=== PATIENT | male | born 1960 | race Caucasian/White ===

== ENCOUNTER 2018-12-17 22:20 | Emergency (ER) | payer MEDICAID, OTHER ==
[2018-12-18] MEDS ORDERED: valACYclovir 1,000 MG Tab PO ONE (00:15)
--- NOTE | 2018-12-18 00:18 | EDM.PDOC ---
ED HPI GENERAL MEDICAL PROBLEM - General Chief Complaint: Fever Stated Complaint: ILLNESS Time Seen by Provider: 12/17/18 23:50 Source of Information: Reports: Patient History Limitations: Reports: No Limitations - History of Present Illness INITIAL COMMENTS - FREE TEXT/NARRATIVE: This gentleman complains of a fever and a possible infected area to his right shoulder area it's just posterior to the right axilla. Started out yesterday as possibly a small bug bite but then today it's much worse. And laid in the diarrhea began to develop some blistering in the center. It's painful and he feels febrile - Related Data Allergies Allergy/AdvReac Type Severity Reaction Status Date / Time No Known Allergies Allergy Verified 12/17/18 22:42 Home Meds: Home Meds NK [No Known Home Meds] 12/17/18 [History] Past Medical History - Past Surgical History GI Surgical History: Reports: Appendectomy Musculoskeletal Surgical History: Reports: Shoulder Surgery Social & Family History - Tobacco Use Smoking Status *Q: Never Smoker ED ROS GENERAL - Review of Systems Review Of Systems: See Below Constitutional: Reports: Fever HEENT: Reports: No Symptoms Respiratory: Reports: No Symptoms Cardiovascular: Reports: No Symptoms, Palpitations GI/Abdominal: Reports: No Symptoms Skin: Reports: No Symptoms Neurological: Reports: No Symptoms Psychiatric: Reports: No Symptoms ED EXAM, SEPSIS - Physical Exam Exam: See Below Exam Limited By: No Limitations General Appearance: Alert, WD/WN Skin: Zoster-Like Rash (An area just posterior to the right axilla is bright red approximately 8 cm in diameter. In the center is a blistered area it's about 1.5 cm wide and about 3 cm long looks like a bunch of small blisters that have coalesced.) Departure - Departure Time of Disposition: 00:23 Disposition: Home, Self-Care 01 Condition: Fair Clinical Impression: Shingles, Shingles - Discharge Information Referrals: PCP,None [Primary Care Provider] - Additional Instructions: For shingles take Valtrex 1000 mg 3 times a day for one week. Since this possibly could also be a staph infection or a tick bite go ahead and take the doxycycline 100 mg twice daily for 10 days. Keep an eye on any spread of the red area. You can jesika the edge with a ballpoint pen. It may spread some over the next 24 hours but diffusely a lot of spreading after that then you should have it rechecked.
== END 2018-12-18 00:40 | disposition home or self-care (01) ==
LOC: JP.ED 22:20
DX: B02.9 Zoster without complications (principal); Z90.49 Acquired absence of other specified parts of digestive tract
CPT/HCPCS: 99282; A9270; 99283